=== PATIENT | female | born 1970 | race Caucasian/White ===

== ENCOUNTER 2019-02-21 06:10 | Day surgery (SDC) | payer OTHER ==
[2019-02-21] MEDS ORDERED: PROPOFOL 40 ML (07:59)
== END 2019-02-21 12:43 | disposition home or self-care (01) ==
LOC: GIL 06:10
DX: K64.4 Residual hemorrhoidal skin tags (principal); K64.8 Other hemorrhoids; I10 Essential (primary) hypertension; E66.01 Morbid (severe) obesity due to excess calories; Z68.43 Body mass index [BMI] 50.0-59.9, adult
CPT/HCPCS: 45378; 84703